=== PATIENT | male | born 1940 | race Caucasian/White ===

== ENCOUNTER 2023-03-31 19:32 | Inpatient (IN) | payer MEDICARE ==
[2023-03-31] MEDS ORDERED: Ondansetron PF 4 MG/2 ML Vial IVP PRN (20:42)
[2023-03-31] MEDS ORDERED: Dextrose 50% Abboject 50 ML SYRINGE SLOW IVP PRN (20:42)
[2023-03-31] MEDS ORDERED: Acetaminophen 325 MG TAB PO PRN (20:42)
[2023-03-31] MEDS ORDERED: Calcium Carbonate 500 MG ChewTAB PO PRN (20:42)
[2023-03-31] MEDS ORDERED: Dextrose 5% in Water 1,000 ML IV PRN (20:42)
[2023-03-31] MEDS ORDERED: Guaifenesin DM 100-10/5 ML UDCUP PO PRN (20:42)
[2023-03-31] MEDS ORDERED: Senokot S 8.6-50 MG TAB PO PRN (20:42)
[2023-03-31] MEDS ORDERED: Glucagon 1 MG/ML KIT IM PRN (20:42)
[2023-03-31] MEDS ORDERED: Albumin 25% 25 GM/100 ML BOT IVPB SCH (21:00)
[2023-03-31 21:12] VITALS: BMI 26.4
[2023-03-31] MEDS ORDERED: Sodium Chloride 0.9% 500 ML IV SCH (22:00)
[2023-03-31] MEDS ORDERED: Meropenem 1 GM in Sodium Chloride 0.9% 100 ML IVPB SCH (22:00)
[2023-03-31] MEDS: Famotidine 20 MG TAB PO SCH (22:44)
[2023-03-31] MEDS: Gabapentin 300 MG CAP PO SCH (22:45)
[2023-03-31] MEDS: Atorvastatin Calcium 40 MG TAB PO SCH (22:45)
[2023-03-31] MEDS: cloNIDine 0.1 MG TAB PO SCH (22:46)
[2023-03-31] MEDS: HumaLOG 300 UNITS/3 ML VIAL SC PRN (23:12)
[2023-03-31] MEDS: Pramipexole Di-HCl 0.25 MG TAB PO SCH (23:30)
[2023-04-01] MEDS: Vancomycin HCl 750 MG in Sodium Chloride 0.9% 250 ML 250 ML IVPB SCH ×2 (02:22→02:23)
[2023-04-01 05:19] LABS: ALT (SGPT) 36 U/L (8-55); AST (SGOT) 35 U/L (5-34); Alkaline Phosphatase 95 U/L (40-110); Anion Gap 13 mmol/L (10-20); BUN (Urea Nitrogen) 8 mg/dL (8.4-25.7); Bilirubin, Total 0.4 mg/dL (0.2-1.2); CK (CPK) 45 U/L (30-200); CRP (Inflammatory) 20.49 mg/dL (= or < 0.5); Calc. Creatinine Clearance 88 mL/min (70-130); Calcium 8.6 mg/dL (7.8-10.44); Carbon Dioxide 22 mmol/L (23-31); Chloride 101 mmol/L (98-107); Estimated GFR 89; Globulin 2.7 g/dL (2.4-3.5); Glucose 217 mg/dL (83-110); Potassium 3.4 mmol/L (3.5-5.1); Protein, Total 5.7 g/dL (5.8-8.1); Sodium 133 mmol/L (136-145)
[2023-04-01] MEDS: HumaLOG 300 UNITS/3 ML VIAL SC PRN ×4 (05:27→21:18)
[2023-04-01] MEDS ORDERED: Meropenem 1 GM in Sodium Chloride 0.9% 100 ML IVPB SCH (06:00)
[2023-04-01 07:00] LABS: #Basophils 0.1 10x3/uL (0.0-0.2); #Eosinphils 0.6 10x3/uL (0.0-0.5); #Monocytes 1.5 10x3/uL (0.0-1.1); #Neutrophils 8.3 10x3/uL (1.5-8.4); %Basophils 0.5 % (0.0-2.0); %Eosinophils 4.5 % (0.0-6.0); %Lymphocytes 17.9 % (18.0-47.0); %Monocytes 11.7 % (0.0-10.0); %Neutrophils 65.1 % (40.0-75.0); Hematocrit 36.8 % (38.8-50.0); Hemoglobin 12.7 g/dL (13.5-17.5); Mean Corpuscular HGB CONC 34.5 g/dL (32.0-36.0); Mean Corpuscular Hemoglobin 30.9 pg (27.0-33.0); Mean Corpuscular Volume 89.5 fl (81.2-95.1); Mean Platelet Volume 10.3 fl (7.4-10.4); Platelet Count 264 10x3/uL (150-450); RBC Distribution Width 14.3 % (11.5-14.5); Red Blood Cell (RBC) Count 4.11 10x6/uL (4.32-5.72); White Blood Cell (WBC) Count 12.8 10x3/uL (3.5-10.5)
[2023-04-01] MEDS ORDERED: FLU VACC QS2023(65UP)/MF59C/PF 60 MCG/0.5 ML SYRINGE IM ONE (08:45)
[2023-04-01] MEDS: glipiZIDE 5 MG TAB PO SCH ×2 (09:27→16:49)
[2023-04-01] MEDS: Aspirin 81 mg Enteric Coated Tablet PO SCH (09:27)
[2023-04-01] MEDS: cloNIDine 0.1 MG TAB PO SCH ×2 (09:28→21:19)
[2023-04-01] MEDS: DULoxetine 20 MG CAP PO SCH (09:28)
[2023-04-01] MEDS: Amlodipine 5 MG TAB PO SCH (09:28)
[2023-04-01] MEDS: Gabapentin 300 MG CAP PO SCH ×3 (09:29→21:20)
[2023-04-01] MEDS: Pramipexole Di-HCl 0.25 MG TAB PO SCH ×2 (09:46→21:20)
[2023-04-01] MEDS ORDERED: Vancomycin HCl 750 MG in Sodium Chloride 0.9% 250 ML 250 ML IVPB SCH (14:00)
[2023-04-01] MEDS ORDERED: LevoFLOXacin 750 MG TAB PO SCH (14:00)
[2023-04-01] MEDS: Atorvastatin Calcium 40 MG TAB PO SCH (21:20)
[2023-04-01] MEDS: Doxycycline 100 MG CAP PO SCH (21:20)
[2023-04-01] MEDS: Famotidine 20 MG TAB PO SCH (21:20)
[2023-04-02 04:43] LABS: #Basophils 0.1 10x3/uL (0.0-0.2); #Eosinphils 0.7 10x3/uL (0.0-0.5); #Monocytes 1.4 10x3/uL (0.0-1.1); #Neutrophils 5.8 10x3/uL (1.5-8.4); %Basophils 0.5 % (0.0-2.0); %Eosinophils 6.3 % (0.0-6.0); %Lymphocytes 24.9 % (18.0-47.0); %Monocytes 13.4 % (0.0-10.0); %Neutrophils 54.4 % (40.0-75.0); Hematocrit 33.7 % (38.8-50.0); Hemoglobin 11.3 g/dL (13.5-17.5); Mean Corpuscular HGB CONC 33.5 g/dL (32.0-36.0); Mean Corpuscular Volume 89.4 fl (81.2-95.1); Mean Platelet Volume 10.5 fl (7.4-10.4); Platelet Count 288 10x3/uL (150-450); RBC Distribution Width 14.5 % (11.5-14.5); Red Blood Cell (RBC) Count 3.77 10x6/uL (4.32-5.72); White Blood Cell (WBC) Count 10.7 10x3/uL (3.5-10.5)
[2023-04-02 04:44] LABS: Anion Gap 13 mmol/L (10-20); BUN (Urea Nitrogen) 13 mg/dL (8.4-25.7); CRP (Inflammatory) 16.65 mg/dL (= or < 0.5); Calc. Creatinine Clearance 82 mL/min (70-130); Calcium 8.7 mg/dL (7.8-10.44); Carbon Dioxide 23 mmol/L (23-31); Chloride 102 mmol/L (98-107); Estimated GFR 87; Glucose 90 mg/dL (83-110); Potassium 3.4 mmol/L (3.5-5.1); Sodium 135 mmol/L (136-145)
[2023-04-02] MEDS: LevoFLOXacin 750 MG TAB PO SCH (06:18)
[2023-04-02] MEDS ORDERED: Electrolyte Replacement Protocol 1 EACH FS SCH (07:45)
[2023-04-02] MEDS ORDERED: Potassium Chloride 20 MEQ TAB PO SCH (08:00)
[2023-04-02] MEDS: Aspirin 81 mg Enteric Coated Tablet PO SCH (09:23)
[2023-04-02] MEDS: glipiZIDE 5 MG TAB PO SCH ×2 (09:23→17:14)
[2023-04-02] MEDS: Gabapentin 300 MG CAP PO SCH ×3 (09:23→21:37)
[2023-04-02] MEDS: cloNIDine 0.1 MG TAB PO SCH ×2 (09:24→21:37)
[2023-04-02] MEDS: DULoxetine 20 MG CAP PO SCH (09:24)
[2023-04-02] MEDS: Doxycycline 100 MG CAP PO SCH ×2 (09:24→21:38)
[2023-04-02] MEDS: Pramipexole Di-HCl 0.25 MG TAB PO SCH ×2 (09:24→21:38)
[2023-04-02] MEDS: Amlodipine 5 MG TAB PO SCH ×2 (09:24→21:38)
[2023-04-02] MEDS: HumaLOG 300 UNITS/3 ML VIAL SC PRN ×2 (12:20→17:14)
[2023-04-02] MEDS: Pioglitazone HCl 15 MG TAB PO SCH (21:37)
[2023-04-02] MEDS: Atorvastatin Calcium 40 MG TAB PO SCH (21:37)
[2023-04-02] MEDS: Famotidine 20 MG TAB PO SCH (21:38)
[2023-04-03 04:54] LABS: #Basophils 0.1 10x3/uL (0.0-0.2); #Eosinphils 0.7 10x3/uL (0.0-0.5); #Neutrophils 4.6 10x3/uL (1.5-8.4); %Basophils 0.7 % (0.0-2.0); %Eosinophils 7.5 % (0.0-6.0); %Lymphocytes 29.3 % (18.0-47.0); %Neutrophils 50.9 % (40.0-75.0); Hematocrit 34.6 % (38.8-50.0); Mean Corpuscular HGB CONC 34.7 g/dL (32.0-36.0); Mean Corpuscular Volume 89.4 fl (81.2-95.1); Platelet Count 313 10x3/uL (150-450); RBC Distribution Width 14.5 % (11.5-14.5); Red Blood Cell (RBC) Count 3.87 10x6/uL (4.32-5.72)
[2023-04-03 04:55] LABS: Phosphorus 3.2 mg/dL (2.3-4.7)
[2023-04-03 04:56] LABS: Anion Gap 12 mmol/L (10-20); BUN (Urea Nitrogen) 14 mg/dL (8.4-25.7); Calc. Creatinine Clearance 86 mL/min (70-130); Calcium 8.6 mg/dL (7.8-10.44); Carbon Dioxide 22 mmol/L (23-31); Chloride 102 mmol/L (98-107); Estimated GFR 88; Glucose 213 mg/dL (83-110); Potassium 4.1 mmol/L (3.5-5.1); Sodium 132 mmol/L (136-145)
[2023-04-03 04:59] LABS: CRP (Inflammatory) 9.07 mg/dL (= or < 0.5); Magnesium 1.7 mg/dL (1.6-2.6)
[2023-04-03] MEDS: HumaLOG 300 UNITS/3 ML VIAL SC PRN (06:10)
[2023-04-03] MEDS: LevoFLOXacin 750 MG TAB PO SCH (06:10)
[2023-04-03] MEDS: Magnesium 2 GM/50 ML(in water) 2 GM in Premix 1 BAG IVPB SCH ×2 (09:27→09:45)
[2023-04-03] MEDS: Pramipexole Di-HCl 0.25 MG TAB PO SCH (09:27)
[2023-04-03] MEDS: Doxycycline 100 MG CAP PO SCH (09:27)
[2023-04-03] MEDS: DULoxetine 20 MG CAP PO SCH (09:27)
[2023-04-03] MEDS: Gabapentin 300 MG CAP PO SCH (09:28)
[2023-04-03] MEDS: Pioglitazone HCl 15 MG TAB PO SCH (09:28)
[2023-04-03] MEDS: Aspirin 81 mg Enteric Coated Tablet PO SCH (09:28)
[2023-04-03] MEDS: cloNIDine 0.1 MG TAB PO SCH (09:29)
[2023-04-03] MEDS: glipiZIDE 5 MG TAB PO SCH (09:29)
[2023-04-03] MEDS: Amlodipine 5 MG TAB PO SCH (09:29)
[2023-04-03 12:31] VITALS: BP 167/82; TEMP 98.7
== END 2023-04-03 13:31 | disposition home or self-care (01) | DRG 872 ==
LOC: CSHTELE 19:32
PROVIDERS: ADMIT Family Medicine; ATTEND Internal Medicine
PROC: 30233J1 Transfusion of Nonautologous Serum Albumin into Peripheral Vein, Percutaneous Approach (ICD-10-PCS; principal; 2023-03-31)
PROC: 3E03329 Introduction of Other Anti-infective into Peripheral Vein, Percutaneous Approach (ICD-10-PCS; 2023-04-01)
DX: A41.9 Sepsis, unspecified organism (principal); L03.116 Cellulitis of left lower limb; E87.1 Hypo-osmolality and hyponatremia; I69.954 Hemiplegia and hemiparesis following unspecified cerebrovascular disease affecting left non-dominant side; I16.0 Hypertensive urgency; E78.5 Hyperlipidemia, unspecified; E11.9 Type 2 diabetes mellitus without complications; K21.9 Gastro-esophageal reflux disease without esophagitis; Z88.2 Allergy status to sulfonamides; Z91.041 Radiographic dye allergy status; Z91.048 Other nonmedicinal substance allergy status; Z88.8 Allergy status to other drugs, medicaments and biological substances; Z79.899 Other long term (current) drug therapy; I10 Essential (primary) hypertension; M19.90 Unspecified osteoarthritis, unspecified site; Z90.89 Acquired absence of other organs; Z98.890 Other specified postprocedural states; Z74.01 Bed confinement status
CPT/HCPCS: 36415; 36416; 80048; 80053; 82550; 83735; 83880; 84100; 84145; 84443; 85025; 86140; 93970; 97139; J1650; J1815; J2185; J3370; J3475; J3490; J7030; J7050; P9047